=== PATIENT | female | born 1950 | race Caucasian/White ===

== ENCOUNTER 2021-08-06 17:25 | Emergency (ER) | payer MEDICARE, SELFPAY ==
--- NOTE | 2021-08-06 17:28 | ERPHSYRPT ---
- History of Present Illness Time Seen by Provider: 08/06/21 17:28 Source: patient Exam Limitations: no limitations Physician History: This is a 71-year-old white female who presents to the emergency department at the direction of Dr. Morton, her primary care physician. Patient was having complaints of right hip and buttock pain with radiation of pain and numbness bonita n her posterior aspect of her right lower extremity. Patient has a history of esophageal cancer 2-1/2 years ago and is undergoing chemoradiation at this time. Patient underwent an MRI of the brain today with and without contrast per Dr. Morton. He stated that there is evidence of metastatic disease/recurrence in her brain. He had told the patient that her pain and numbness symptoms may be related to chemotherapy/radiation therapy, sciatica but is also now concerned of possibly some cord compression. Patient has not lost any bowel or bladder control. He contacted me and asked me to provide the patient with dexamethasone and to attempt to contact the oncologist for any further recommendations. Dr. Morton did not feel that the patient needed an extensive work-up or any further radiographic studies. Timing/Duration: day(s) (To moderate several) Severity: mild Associated Symptoms: denies symptoms Allergies/Adverse Reactions: No Known Drug Allergies Allergy (Verified 08/06/21 17:45) Home Medications: Metoprolol Succinate 25 mg Xl* [Toprol-Xl 25MG Tablets] 25 mg PO DAILY 08/06/21 [History] Pregabalin 100 mg PO DAILY 08/06/21 [History] Sucralfate 1 gm [Carafate 1 GM] 1 gm PO DAILY 08/06/21 [History] Travel Risk - International Travel Have you traveled outside of the country in past 3 weeks: No - Coronavirus Screening Are you exhibiting any of the following symptoms?: No Close contact with a COVID-19 positive Pt in past 14-21 Days: No - Review of Systems Constitutional: No Symptoms Eyes: No Symptoms Ears, Nose, & Throat: No Symptoms Respiratory: No Symptoms Cardiac: No Symptoms Abdominal/Gastrointestinal: No Symptoms Genitourinary Symptoms: No Symptoms Musculoskeletal: Other (Pain right posterior hip, buttock with shooting pain down the right leg ) Skin: No Symptoms Neurological: No Symptoms Psychological: No Symptoms Endocrine: No Symptoms Hematologic/Lymphatic: No Symptoms Immunological/Allergic: No Symptoms All Other Systems: Reviewed and Negative - Past Medical History Pertinent Past Medical History: Yes - Past Surgical History Past Surgical History: Yes - Nursing Vital Signs Nursing Vital Signs: Initial Vital Signs Temperature 98.4 F 08/06/21 17:38 Pulse Rate 78 08/06/21 17:38 Respiratory Rate 22 08/06/21 17:38 Blood Pressure 166/100 08/06/21 17:38 O2 Sat by Pulse Oximetry 99 08/06/21 17:38 Pain Scale Pain Intensity 6 - Physical Exam General Appearance: no apparent distress, alert, anxiety Eye Exam: PERRL/EOMI, eyes nml inspection Ears, Nose, Throat Exam: normal ENT inspection, moist mucous membranes Neck Exam: normal inspection, non-tender, supple, full range of motion Respiratory Exam: normal breath sounds, lungs clear, airway intact, No chest tenderness, No respiratory distress Cardiovascular Exam: regular rate/rhythm, normal heart sounds, normal peripheral pulses Gastrointestinal/Abdomen Exam: soft, normal bowel sounds, No tenderness Pelvic Exam: not done Rectal Exam: not done Back Exam: normal inspection, normal range of motion, No CVA tenderness, No vertebral tenderness Extremity Exam: normal inspection, normal range of motion, pelvis stable, tenderness (Right hip, buttock thigh all posteriorly) Neurologic Exam: alert, oriented x 3, cooperative, 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, normal mood/affect, nml cerebellar function, nml station & gait, sensation nml Skin Exam: normal color, warm, dry Lymphatic Exam: No adenopathy SpO2 Interpretation: normal O2 Delivery: Room Air - Course Nursing assessment & vital signs reviewed: Yes Ordered Tests: Active Orders 24 hr Category Date Time Status IV Insertion STAT Care 08/06/21 17:35 Active CBC W DIFF Stat Lab 08/06/21 18:10 Completed CMP Stat Lab 08/06/21 18:10 Completed MAGNESIUM Stat Lab 08/06/21 18:10 Completed Medication Summary Discontinued Medications Generic Name Dose Route Start Last Admin Trade Name James PRN Reason Stop Dose Admin Dexamethasone Sodium Phosphate 10 mg 08/06/21 18:56 08/06/21 19:02 Decadron 4 Mg Inj IV 08/06/21 18:57 Not Given STAT ONE Dexamethasone Sodium Phosphate Confirm 08/06/21 19:01 Decadron 10mg Inj. Administered 08/06/21 19:02 Dose 10 mg .ROUTE .STK-MED ONE Dexamethasone Sodium Phosphate 10 mg 08/06/21 19:03 08/06/21 19:07 Decadron 4 Mg Inj IV 08/06/21 19:04 10 mg STAT ONE Administration Dexamethasone Sodium Phosphate Confirm 08/06/21 19:05 Decadron 4 Mg Inj Administered 08/06/21 19:06 Dose 12 mg .ROUTE .STK-MED ONE Lab/Rad Data: Laboratory Result Diagrams 08/06/21 18:10 08/06/21 18:10 Laboratory Results 08/06/21 08/06/21 08/06/21 Range/Units 18:10 18:10 18:10 WBC 4.9 (4.0-10.5) K/mm3 RBC 4.17 (4.1-5.4) M/mm3 Hgb 12.3 (12.0-16.0) gm/dl Hct 38.3 (35-47) % MCV 91.8 (78-100) fl MCH 29.5 (26-32) pg MCHC 32.1 (32-36) g/dl RDW 13.6 (11.5-14.0) % Plt Count 247 (150-450) K/mm3 MPV 11.8 H (7.5-11.0) fl Gran % 67.0 H (36.0-66.0) % Eos # (Auto) 0.14 (0-0.5) Absolute Lymphs (auto) 1.05 (1.0-4.6) Absolute Monos (auto) 0.41 (0.0-1.3) Lymphocytes % 21.5 L (24.0-44.0) % Monocytes % 8.4 (0.0-12.0) % Eosinophils % 2.9 (0.00-5.0) % Basophils % 0.2 (0.0-0.4) % Absolute Granulocytes 3.28 (1.4-6.9) Basophils # 0.01 (0-0.4) Sodium 141 (137-145) mmol/L Potassium 3.7 (3.5-5.1) mmol/L Chloride 103 (98-107) mmol/L Carbon Dioxide 26 (22-30) mmol/L Anion Gap 14.8 (5-15) MEQ/L BUN 12 (7-17) mg/dL Creatinine 0.71 (0.52-1.04) mg/dL Estimated GFR > 60.0 ML/MIN Glucose 163 H (74-106) mg/dL Calcium 9.3 (8.4-10.2) mg/dL Magnesium 1.9 (1.6-2.3) mg/dL Total Bilirubin 0.80 (0.2-1.3) mg/dL AST 23 (14-36) U/L ALT 20 (0-35) U/L Alkaline Phosphatase 99 (38-126) U/L Serum Total Protein 6.9 (6.3-8.2) g/dL Albumin 4.2 (3.5-5.0) g/dL - Progress Progress: improved, pain not gone completely Progress Note: 08/06/21 19:21 MRI of the brain that was performed earlier today in [facility]. I reviewed the dictated impression by the radiologist and there is evidence of metastatic disease in the patient's brain. 08/06/21 19:29 Medical decision making: I spoke with the patient's oncologist, Dr. Lester. I reviewed the MRI findings of metastatic disease in the brain. He recommends, since the patient has no acute neurologic deficits or abnormalities, dexamethasone 4 mg 4 times a day. In addition Pepcid 40 mg orally daily. She is to call his office on 08/09/2021 at 8:30 AM. She needs to tell the office that the doctor is aware of her and he wants to see her on Monday. Counseled pt/family regarding: lab results, diagnosis, need for follow-up - Departure Departure Disposition: Home Clinical Impression: Sciatica of right side, Metastasis to brain Condition: Stable Critical Care Time: No Referrals: JYOTI MORTON MD [Primary Care Provider] - Additional Instructions: Take your medication as prescribed. Follow-up with , oncologist on 08/09/2021, by phone to make arrangements to be seen on Monday by him. Prescriptions: Dexamethasone 4 mg [Decadron 4 MG] 4 mg PO QID #28 tablet Famotidine 20 mg [Pepcid 20 MG] 40 mg PO DAILY #40 tablet
[2021-08-06 18:40] LABS: ALBUMIN 4.2 g/dL (3.5-5.0); ALKALINE PHOSPHATASE 99 U/L (38-126); ANION GAP 14.8 MEQ/L (5-15); Absolute Neutrophil Ct (ANC) 3.28 (1.4-6.9); BASOPHIL % 0.2 % (0.0-0.4); BLOOD UREA NITROGEN 12 mg/dL (7-17); Basophil (Absolute #) 0.01 (0-0.4); CHLORIDE 103 mmol/L (98-107); Calcium 9.3 mg/dL (8.4-10.2); Carbon Dioxide 26 mmol/L (22-30); Creatinine 1 0.71 mg/dL (0.52-1.04); EST GLOMERULAR FILTRATION RATE > 60.0 ML/MIN; Eosinophil % 2.9 % (0.00-5.0); Eosinophil (Absolute #) 0.14 (0-0.5); Glucose 163 mg/dL (74-106); Hematocrit 38.3 % (35-47); Hemoglobin 12.3 gm/dl (12.0-16.0); Lymphocyte (Absolute #) 1.05 (1.0-4.6); Lymphocytes % 21.5 % (24.0-44.0); Mean Cell Volume 91.8 fl (78-100); Mean Corpuscular Hemoglobin 29.5 pg (26-32); Mean Corpuscular Hgb Concent. 32.1 g/dl (32-36); Mean Platelet Volume 11.8 fl (7.5-11.0); Monocyte (Absolute #) 0.41 (0.0-1.3); Monocytes % 8.4 % (0.0-12.0); Platelet Count 247 K/mm3 (150-450); Potassium 3.7 mmol/L (3.5-5.1); Red Blood Count 4.17 M/mm3 (4.1-5.4); Red Cell Distribution Width 13.6 % (11.5-14.0); SGOT/AST 23 U/L (14-36); SGPT/ALT 20 U/L (0-35); SODIUM 141 mmol/L (137-145); Total Protein 6.9 g/dL (6.3-8.2); White Blood Count 4.9 K/mm3 (4.0-10.5)
[2021-08-06] MEDS ORDERED: Decadron 4 MG INJ IV ONE ×2 (18:56→19:03)
[2021-08-06] MEDS ORDERED: DECADRON 10MG INJ. ONE (19:01)
[2021-08-06] MEDS ORDERED: Decadron 4 MG INJ ONE (19:05)
[2021-08-06 19:49] VITALS: BP 176/82; PULSE 63; O2SAT 100
== END 2021-08-06 20:45 | disposition home or self-care (01) ==
LOC: ED 17:25
DX: M54.31 Sciatica, right side (principal); C79.31 Secondary malignant neoplasm of brain; Z79.899 Other long term (current) drug therapy
CPT/HCPCS: 36000; 36415; 80053; 83735; 85025; 96374; 99284; J1100